=== PATIENT | male | born 1970 | race African-American/Black ===

== ENCOUNTER 2017-04-08 20:06 | Inpatient (IN) | payer BC, OTHER ==
[~2017-04-08] VITALS: Ht 185.4 cm; Wt 114.3 kg
[~2017-04-08 20:06] MED LIST: ALBU0.63 NEB; ALBU90AE INH; ASPI-621 PO; ATOR20TA PO; CARV25TA PO; FURO-93 PO; GABA-826 PO; GLIM1TAB2 PO; HYDR-3343 PO; HYDR25TA6 PO; LISI-420 PO; NITR0.3T5 PO; POTA8CAP PO; SILD50TA PO
[2017-04-08] MEDS ORDERED: ONDANSETRON 2MG/ML, 2ML IVPush ONE ×2 (20:30→21:30)
[2017-04-08] MEDS ORDERED: SODIUM CHLORIDE FLUSH 10ML SYR IVF ONE (20:30)
[2017-04-08] MEDS ORDERED: hydrALAzine 20 MG/ML, 1ML IV ONE (20:30)
[2017-04-08] MEDS ORDERED: hydrALAzine 20 MG/ML, 1ML ONE (20:30)
[2017-04-08 20:49] LABS: BASOPHILS # (AUTO) 0.06 x10^3/uL (0-0.1); BASOPHILS % (AUTO) 1 % (0-1); EOSINOPHILS # (AUTO) 0.39 x10^3/uL (0-0.4); EOSINOPHILS % (AUTO) 6 % (1-7); LYMPHOCYTES # (AUTO) 2.02 x10^3/uL (1-3.4); LYMPHOCYTES % (AUTO) 32 % (22-44); MD NO; MEAN CORPUSCULAR HGB CONC 32.6 g/dL (33.2-36.2); MEAN CORPUSCULAR VOLUME 76.8 fL (81-97); MEAN PLATELET VOLUME 10.6 fL (7.4-10.4); MONOCYTES # (AUTO) 0.42 x10^3/uL (0.2-0.8); MONOCYTES % (AUTO) 7 % (2-9); NEUTROPHILS # (AUTO) 3.47 x10^3/uL (1.8-6.8); NEUTROPHILS % (AUTO) 55 % (42-75); PLATELET COUNT 232 x10^3/uL (130-400); RED BLOOD COUNT 5.57 x10^6/uL (4.38-5.82); RED CELL DISTRIBUTION WIDTH 18.1 % (9.4-14.8)
[2017-04-08] MEDS ORDERED: ONDANSETRON 2MG/ML, 2ML ONE ×2 (20:58→21:25)
[2017-04-08 21:07] LABS: ALANINE AMINOTRANSFERASE 20 U/L (12-78); ALBUMIN 3.1 g/dL (3.4-5.0); ANION GAP 6 mmol/L (5-15); CALCIUM 8.7 mg/dL (8.5-10.1); CHLORIDE 105 mmol/L (98-107); CREATININE 1.78 mg/dL (0.7-1.3)
[2017-04-08 21:10] LABS: ALKALINE PHOSPHATASE 58 U/L (45-117); BILIRUBIN,TOTAL 0.4 mg/dL (0.2-1.0); TOTAL PROTEIN 7.8 g/dL (6.4-8.2)
[2017-04-08] MEDS ORDERED: FAMOTIDINE 20 MG/2 ML ONE (21:29)
[2017-04-08] MEDS ORDERED: FAMOTIDINE 20 MG/2 ML IVPush ONE (21:30)
[2017-04-08] MEDS ORDERED: LABETALOL 5MG/ML, 20ML IVPush ONE (22:00)
[2017-04-08] MEDS ORDERED: SODIUM CHLORIDE FLUSH 10ML SYR IVF PRN (22:00)
[2017-04-08] MEDS ORDERED: MORPHINE SULFATE 4 MG/ML, 1ML IVPush PRN (22:00)
[2017-04-08] MEDS ORDERED: PROMETHAZINE 25 MG/ML, 1ML IM ONE (22:00)
[2017-04-08] MEDS ORDERED: LABETALOL 5MG/ML, 20ML ONE (22:04)
[2017-04-08] MEDS ORDERED: PROMETHAZINE 25 MG/ML, 1ML ONE (22:04)
[2017-04-08] MEDS ORDERED: MORPHINE SULFATE 4 MG/ML, 1ML ONE (22:05)
[2017-04-08] MEDS ORDERED: SODIUM CHLORIDE 0.9% 1,000 ML IV SCH (22:45)
[2017-04-08] MEDS ORDERED: GABAPENTIN 300 MG CAPSULE PO PRN (23:00)
[2017-04-08] MEDS ORDERED: FAMOTIDINE 20 MG/2 ML IVPush SCH (23:00)
[2017-04-08] MEDS ORDERED: BISACODYL 10 MG SUPP PR PRN (23:00)
[2017-04-08] MEDS ORDERED: HEPARIN 5,000 UNITS/ML, 1ML ONE (23:17)
[2017-04-08] MEDS: HEPARIN 5,000 UNITS/ML, 1ML SQ SCH (23:56)
[2017-04-08] MEDS: ATORVASTATIN 20 MG TABLET PO SCH (23:56)
[2017-04-09 00:23] VITALS: BP 184/98
[2017-04-09] MEDS: INSULIN ASPART 100 UNITS/ML, PEN SQ-INSULIN SCH ×6 (00:44→20:06)
[2017-04-09] MEDS: BISMUTH SUBSALICYLATE 175 MG/5 ML MAX/STR PO SCH ×4 (01:00→19:20)
[2017-04-09 04:00] VITALS: BP 154/75
[2017-04-09 05:14] LABS: CHLORIDE 106 mmol/L (98-107)
[2017-04-09 05:15] LABS: ALBUMIN 3.1 g/dL (3.4-5.0); ANION GAP 9 mmol/L (5-15); CALCIUM 8.8 mg/dL (8.5-10.1)
[2017-04-09 05:20] LABS: ALANINE AMINOTRANSFERASE 20 U/L (12-78); ALKALINE PHOSPHATASE 59 U/L (45-117); BILIRUBIN,TOTAL 0.6 mg/dL (0.2-1.0); CREATININE 1.61 mg/dL (0.7-1.3); TOTAL PROTEIN 7.6 g/dL (6.4-8.2); TROPONIN I 0.023 ng/mL (0.000-0.045)
[2017-04-09 05:30] LABS: MEAN CORPUSCULAR HEMOGLOBIN 25.4 pg (27.5-34.5); MEAN CORPUSCULAR HGB CONC 33.2 g/dL (33.2-36.2); MEAN CORPUSCULAR VOLUME 76.3 fL (81-97); MEAN PLATELET VOLUME 11.1 fL (7.4-10.4); PLATELET COUNT 219 x10^3/uL (130-400); RED BLOOD COUNT 5.61 x10^6/uL (4.38-5.82); RED CELL DISTRIBUTION WIDTH 17.7 % (9.4-14.8)
[2017-04-09 06:24] LABS: BASOPHILS # (AUTO) 0.05 x10^3/uL (0-0.1); BASOPHILS % (AUTO) 1 % (0-1); EOSINOPHILS # (AUTO) 0.16 x10^3/uL (0-0.4); EOSINOPHILS % (AUTO) 2 % (1-7); LYMPHOCYTES # (AUTO) 2.42 x10^3/uL (1-3.4); LYMPHOCYTES % (AUTO) 34 % (22-44); MD SCAN; MONOCYTES # (AUTO) 0.46 x10^3/uL (0.2-0.8); MONOCYTES % (AUTO) 7 % (2-9); NEUTROPHILS # (AUTO) 4.01 x10^3/uL (1.8-6.8); NEUTROPHILS % (AUTO) 57 % (42-75)
[2017-04-09 08:24] LABS: AMPHETAMINE SCREEN, URINE Negative (Negative); BARBITURATE SCREEN, URINE Negative (Negative); BENZODIAZEPINE SCREEN, URINE Negative (Negative); CANNABINOID SCREEN, URINE Positive (Negative); COCAINE SCREEN, URINE Negative (Negative); METHADONE SCREEN, URINE Negative (Negative); OPIATE SCREEN, URINE Positive (Negative)
[2017-04-09] MEDS: ONDANSETRON 2MG/ML, 2ML IVPush PRN ×3 (08:26→14:04)
[2017-04-09] MEDS: AMOXICILLIN 500 MG CAPSULE PO SCH ×2 (09:09→20:08)
[2017-04-09] MEDS: LISINOPRIL 20 MG TABLET PO SCH (09:10)
[2017-04-09] MEDS: CLARITHROMYCIN 500 MG TABLET PO SCH ×2 (09:10→20:08)
[2017-04-09] MEDS: OMEPRAZOLE 20 MG CAPSULE.DR PO SCH ×2 (09:10→20:08)
[2017-04-09] MEDS: CARVEDILOL 25 MG TABLET PO SCH ×2 (09:10→20:08)
[2017-04-09] MEDS: ASPIRIN 81 MG TABLET EC PO SCH (09:10)
[2017-04-09] MEDS: HEPARIN 5,000 UNITS/ML, 1ML SQ SCH ×3 (10:44→23:02)
[2017-04-09] MEDS: FERROUS SULFATE 325 MG TABLET PO SCH (10:44)
[2017-04-09] MEDS ORDERED: PROMETHAZINE 25 MG/ML, 1ML ONE (11:36)
[2017-04-09] MEDS: PROMETHAZINE 25 MG/ML, 1ML IM PRN ×3 (11:40→20:12)
[2017-04-09] MEDS: GLIMEPIRIDE 1 MG TABLET PO SCH (16:50)
[2017-04-09] MEDS: MAALOX/HYOSCYAMINE/LIDOCAINE 45 ML BTL PO PRN (17:23)
[2017-04-09] MEDS: ATORVASTATIN 20 MG TABLET PO SCH (20:07)
[2017-04-09] MEDS: morphine SULFATE 10 MG/ML, 1ML IVPush PRN (20:22)
[2017-04-10] MEDS: BISMUTH SUBSALICYLATE 175 MG/5 ML MAX/STR PO SCH ×4 (02:49→19:35)
[2017-04-10 04:23] LABS: ANION GAP 5 mmol/L (5-15); CALCIUM 8.4 mg/dL (8.5-10.1); CHLORIDE 105 mmol/L (98-107); CREATININE 1.82 mg/dL (0.7-1.3)
[2017-04-10 04:49] VITALS: BP 145/87
[2017-04-10] MEDS: GLIMEPIRIDE 1 MG TABLET PO SCH ×3 (06:25→16:08)
[2017-04-10] MEDS: INSULIN ASPART 100 UNITS/ML, PEN SQ-INSULIN SCH ×4 (06:29→21:34)
[2017-04-10] MEDS: LISINOPRIL 20 MG TABLET PO SCH (10:52)
[2017-04-10] MEDS: HEPARIN 5,000 UNITS/ML, 1ML SQ SCH ×2 (10:52→19:35)
[2017-04-10] MEDS: FERROUS SULFATE 325 MG TABLET PO SCH (10:52)
[2017-04-10] MEDS: ASPIRIN 81 MG TABLET EC PO SCH (10:52)
[2017-04-10] MEDS: CLARITHROMYCIN 500 MG TABLET PO SCH ×2 (10:52→21:29)
[2017-04-10] MEDS: AMOXICILLIN 500 MG CAPSULE PO SCH ×2 (10:52→21:29)
[2017-04-10] MEDS: OMEPRAZOLE 20 MG CAPSULE.DR PO SCH ×2 (10:52→21:29)
[2017-04-10] MEDS ORDERED: SODIUM CHLORIDE 0.9% 1,000 ML IV SCH (11:00)
[2017-04-10] MEDS: DILTIAZEM 60 MG TABLET PO SCH ×3 (11:47→21:29)
[2017-04-10] MEDS: SODIUM CHLORIDE 0.9% 1,000 ML IV SCH ×2 (11:48→21:28)
[2017-04-10] MEDS: ATORVASTATIN 20 MG TABLET PO SCH (21:29)
[2017-04-10] MEDS: ONDANSETRON 2MG/ML, 2ML IVPush PRN (22:57)
[2017-04-11] MEDS: BISMUTH SUBSALICYLATE 175 MG/5 ML MAX/STR PO SCH ×4 (00:15→19:00)
[2017-04-11] MEDS: PROMETHAZINE 25 MG/ML, 1ML IM PRN ×4 (00:16→20:00)
[2017-04-11] MEDS: morphine SULFATE 10 MG/ML, 1ML IVPush PRN ×3 (00:34→20:02)
[2017-04-11] MEDS: MAALOX/HYOSCYAMINE/LIDOCAINE 45 ML BTL PO PRN (00:42)
[2017-04-11 03:49] VITALS: BP 170/79
[2017-04-11 04:40] LABS: ANION GAP 9 mmol/L (5-15); CALCIUM 8.4 mg/dL (8.5-10.1); CHLORIDE 107 mmol/L (98-107); CREATININE 1.76 mg/dL (0.7-1.3)
[2017-04-11] MEDS: HEPARIN 5,000 UNITS/ML, 1ML SQ SCH ×3 (04:52→19:00)
[2017-04-11] MEDS: SODIUM CHLORIDE 0.9% 1,000 ML IV SCH (06:39)
[2017-04-11] MEDS: INSULIN ASPART 100 UNITS/ML, PEN SQ-INSULIN SCH ×4 (06:43→20:21)
[2017-04-11] MEDS: OMEPRAZOLE 20 MG CAPSULE.DR PO SCH ×3 (09:09→21:00)
[2017-04-11] MEDS: GLIMEPIRIDE 1 MG TABLET PO SCH ×3 (09:09→16:00)
[2017-04-11] MEDS: FERROUS SULFATE 325 MG TABLET PO SCH (09:09)
[2017-04-11] MEDS: LISINOPRIL 20 MG TABLET PO SCH (09:09)
[2017-04-11] MEDS: ASPIRIN 81 MG TABLET EC PO SCH (09:09)
[2017-04-11] MEDS: CLARITHROMYCIN 500 MG TABLET PO SCH ×3 (09:09→21:00)
[2017-04-11] MEDS: DILTIAZEM 60 MG TABLET PO SCH ×4 (09:09→21:00)
[2017-04-11] MEDS: AMOXICILLIN 500 MG CAPSULE PO SCH ×3 (09:10→21:00)
[2017-04-11] MEDS: ONDANSETRON 2MG/ML, 2ML IVPush PRN ×2 (09:10→20:00)
[2017-04-11] MEDS ORDERED: FAMOTIDINE 20 MG/2 ML ONE (10:57)
[2017-04-11] MEDS ORDERED: hydrALAzine 20 MG/ML, 1ML IV ONE (16:00)
[2017-04-11] MEDS ORDERED: DIAZEPAM 5 MG/ML, 2ML IV ONE (19:00)
[2017-04-11] MEDS: hydrALAzine 20 MG/ML, 1ML IV SCH (19:59)
[2017-04-11] MEDS: ATORVASTATIN 20 MG TABLET PO SCH ×2 (19:59→21:00)
[2017-04-12] MEDS: BISMUTH SUBSALICYLATE 175 MG/5 ML MAX/STR PO SCH ×5 (01:00→20:55)
[2017-04-12] MEDS: hydrALAzine 20 MG/ML, 1ML IV SCH ×4 (01:53→20:53)
[2017-04-12] MEDS: HEPARIN 5,000 UNITS/ML, 1ML SQ SCH ×4 (03:00→20:54)
[2017-04-12 04:00] VITALS: BP 153/77
[2017-04-12] MEDS: PROCHLORPERAZINE 5 MG/ML, 2ML IM PRN ×2 (04:24→09:12)
[2017-04-12 04:35] LABS: BASOPHILS # (AUTO) 0.06 x10^3/uL (0-0.1); BASOPHILS % (AUTO) 1 % (0-1); EOSINOPHILS # (AUTO) 0.02 x10^3/uL (0-0.4); EOSINOPHILS % (AUTO) 0 % (1-7); LYMPHOCYTES # (AUTO) 1.33 x10^3/uL (1-3.4); LYMPHOCYTES % (AUTO) 14 % (22-44); MD NO; MEAN CORPUSCULAR HEMOGLOBIN 25.2 pg (27.5-34.5); MEAN CORPUSCULAR HGB CONC 32.3 g/dL (33.2-36.2); MEAN CORPUSCULAR VOLUME 77.8 fL (81-97); MEAN PLATELET VOLUME 10.5 fL (7.4-10.4); MONOCYTES # (AUTO) 0.49 x10^3/uL (0.2-0.8); MONOCYTES % (AUTO) 5 % (2-9); NEUTROPHILS # (AUTO) 7.45 x10^3/uL (1.8-6.8); NEUTROPHILS % (AUTO) 80 % (42-75); PLATELET COUNT 240 x10^3/uL (130-400); RED BLOOD COUNT 5.79 x10^6/uL (4.38-5.82); RED CELL DISTRIBUTION WIDTH 17.6 % (9.4-14.8)
[2017-04-12 04:43] LABS: ALANINE AMINOTRANSFERASE 18 U/L (12-78); ANION GAP 10 mmol/L (5-15); CALCIUM 8.8 mg/dL (8.5-10.1); CHLORIDE 105 mmol/L (98-107); CREATININE 1.39 mg/dL (0.7-1.3)
[2017-04-12 04:45] LABS: ALKALINE PHOSPHATASE 59 U/L (45-117); BILIRUBIN,TOTAL 0.6 mg/dL (0.2-1.0); TOTAL PROTEIN 7.7 g/dL (6.4-8.2)
[2017-04-12] MEDS: GLIMEPIRIDE 1 MG TABLET PO SCH ×3 (06:30→16:00)
[2017-04-12] MEDS: INSULIN ASPART 100 UNITS/ML, PEN SQ-INSULIN SCH ×4 (07:00→20:53)
[2017-04-12] MEDS: CLARITHROMYCIN 500 MG TABLET PO SCH ×2 (08:42→20:54)
[2017-04-12] MEDS: OMEPRAZOLE 20 MG CAPSULE.DR PO SCH (08:42)
[2017-04-12] MEDS: AMOXICILLIN 500 MG CAPSULE PO SCH ×2 (08:43→20:55)
[2017-04-12] MEDS: LISINOPRIL 20 MG TABLET PO SCH (08:43)
[2017-04-12] MEDS: ASPIRIN 81 MG TABLET EC PO SCH (08:43)
[2017-04-12] MEDS: FERROUS SULFATE 325 MG TABLET PO SCH (08:44)
[2017-04-12] MEDS: DILTIAZEM 60 MG TABLET PO SCH ×3 (08:44→20:55)
[2017-04-12] MEDS ORDERED: SCOPOLAMINE PATCH, 1.5MG PATCH.TD72 TD PRN (09:30)
[2017-04-12] MEDS: METOCLOPRAMIDE 5 MG/ML, 2ML IV SCH ×3 (10:51→20:53)
[2017-04-12] MEDS ORDERED: MAGNESIUM SULFATE PMX 2GM/50ML 50 ML IV ONE (17:00)
[2017-04-12] MEDS: PANTOPRAZOLE 40 MG IV IVPush SCH (20:52)
[2017-04-12] MEDS: ATORVASTATIN 20 MG TABLET PO SCH (20:54)
[2017-04-13] MEDS: BISMUTH SUBSALICYLATE 175 MG/5 ML MAX/STR PO SCH ×3 (01:00→12:40)
[2017-04-13] MEDS: hydrALAzine 20 MG/ML, 1ML IV SCH (02:15)
[2017-04-13] MEDS: HEPARIN 5,000 UNITS/ML, 1ML SQ SCH ×2 (02:15→11:00)
[2017-04-13 04:30] VITALS: BP 142/88
[2017-04-13 04:44] LABS: MEAN CORPUSCULAR HEMOGLOBIN 25.1 pg (27.5-34.5); MEAN CORPUSCULAR HGB CONC 32.6 g/dL (33.2-36.2); MEAN CORPUSCULAR VOLUME 76.9 fL (81-97); MEAN PLATELET VOLUME 10.5 fL (7.4-10.4); PLATELET COUNT 234 x10^3/uL (130-400); RED CELL DISTRIBUTION WIDTH 17.7 % (9.4-14.8)
[2017-04-13 04:47] LABS: ALBUMIN 2.6 g/dL (3.4-5.0); ANION GAP 7 mmol/L (5-15); CALCIUM 8.5 mg/dL (8.5-10.1); CHLORIDE 106 mmol/L (98-107)
[2017-04-13 04:51] LABS: ALANINE AMINOTRANSFERASE 16 U/L (12-78); ALKALINE PHOSPHATASE 50 U/L (45-117); BILIRUBIN,TOTAL 0.7 mg/dL (0.2-1.0); CREATININE 1.85 mg/dL (0.7-1.3); TOTAL PROTEIN 6.7 g/dL (6.4-8.2)
[2017-04-13 05:32] LABS: BASOPHILS # (AUTO) 0.09 x10^3/uL (0-0.1); BASOPHILS % (AUTO) 1 % (0-1); EOSINOPHILS # (AUTO) 0.19 x10^3/uL (0-0.4); EOSINOPHILS % (AUTO) 3 % (1-7); LYMPHOCYTES # (AUTO) 1.83 x10^3/uL (1-3.4); LYMPHOCYTES % (AUTO) 26 % (22-44); MD SCAN; MONOCYTES # (AUTO) 0.86 x10^3/uL (0.2-0.8); MONOCYTES % (AUTO) 12 % (2-9); NEUTROPHILS # (AUTO) 4.14 x10^3/uL (1.8-6.8); NEUTROPHILS % (AUTO) 58 % (42-75)
[2017-04-13] MEDS: INSULIN ASPART 100 UNITS/ML, PEN SQ-INSULIN SCH ×2 (08:06→12:01)
[2017-04-13] MEDS: FERROUS SULFATE 325 MG TABLET PO SCH (08:06)
[2017-04-13] MEDS: GLIMEPIRIDE 1 MG TABLET PO SCH ×2 (08:06→11:57)
[2017-04-13] MEDS: LISINOPRIL 20 MG TABLET PO SCH (08:07)
[2017-04-13] MEDS: ASPIRIN 81 MG TABLET EC PO SCH (08:07)
[2017-04-13] MEDS: DILTIAZEM 60 MG TABLET PO SCH (08:07)
[2017-04-13] MEDS: AMOXICILLIN 500 MG CAPSULE PO SCH (08:07)
[2017-04-13] MEDS: CLARITHROMYCIN 500 MG TABLET PO SCH (08:07)
[2017-04-13] MEDS: PANTOPRAZOLE 40 MG IV IVPush SCH (08:23)
[2017-04-13] MEDS: METOCLOPRAMIDE 5 MG/ML, 2ML IV SCH (08:23)
[2017-04-13] MEDS ORDERED: PIPERACILLIN/TAZO/PMX 3.375GM 50 ML IV SCH (08:30)
[2017-04-13] MEDS ORDERED: CEFD300C37 PO (11:47)
[2017-04-13] MEDS ORDERED: LANS1COM3 PO (11:47)
[2017-04-13] MEDS ORDERED: METR500T PO (11:47)
[2017-04-13] MEDS ORDERED: HYDR-3343 PO (11:47)
[2017-04-13] MEDS ORDERED: CEFDINIR 300 MG CAPSULE PO SCH (12:30)
[2017-04-13] MEDS ORDERED: metroNIDAZOLE 500 MG TABLET PO SCH (12:30)
== END 2017-04-13 14:55 | disposition home or self-care (01) | DRG 305 ==
LOC: ED 21:12 → EDIP 22:28 → CCU 04-09 00:09 → DCLOUNGE 04-13 14:37
PROVIDERS: ADMIT Internal Medicine; ATTEND Internal Medicine
DX: I16.9 Hypertensive crisis, unspecified (principal); N17.9 Acute kidney failure, unspecified; E11.22 Type 2 diabetes mellitus with diabetic chronic kidney disease; I50.9 Heart failure, unspecified; E11.65 Type 2 diabetes mellitus with hyperglycemia; E44.1 Mild protein-calorie malnutrition; D50.9 Iron deficiency anemia, unspecified; F12.10 Cannabis abuse, uncomplicated; I13.0 Hypertensive heart and chronic kidney disease with heart failure and stage 1 through stage 4 chronic kidney disease, or unspecified chronic kidney disease; Z68.33 Body mass index [BMI] 33.0-33.9, adult; E66.9 Obesity, unspecified; E78.5 Hyperlipidemia, unspecified; F17.210 Nicotine dependence, cigarettes, uncomplicated; J44.9 Chronic obstructive pulmonary disease, unspecified; K52.9 Noninfective gastroenteritis and colitis, unspecified; N18.2 Chronic kidney disease, stage 2 (mild); Z82.49 Family history of ischemic heart disease and other diseases of the circulatory system
CPT/HCPCS: 36415; 70450; 71045; 74018; 74176; 76700; 78264; 80048; 80053; 80307; 82728; 82962; 83036; 83540; 83550; 83690; 83735; 84484; 85025; 86677; 87081; 93005; 93975; 96372; 96374; 96375; J1644; J1815; J2405; J2543; J2550; J3360; A9541; C9113; C9898; G0479; J0360; J0780; J2270; J2765; J3475; J7030; J7050; S0028

== ENCOUNTER 2017-05-21 08:32 | Inpatient (IN) | payer BC, OTHER ==
[~2017-05-21] VITALS: Ht 185.4 cm; Wt 120.0 kg
[~2017-05-21 08:32] MED LIST changes: +CEFD300C37 PO; +LANS1COM3 PO; +METR500T PO
[2017-05-21] MEDS ORDERED: SODIUM CHLORIDE 0.9% 1,000 ML IV ONE (08:39)
[2017-05-21] MEDS ORDERED: SODIUM CHLORIDE 0.9% 1,000ML IVBOLUS ONE (09:00)
[2017-05-21] MEDS ORDERED: CAPSAICIN CRM 0.075%, 60GM TP ONE (09:00)
[2017-05-21] MEDS ORDERED: FAMOTIDINE 20 MG/2 ML IVP ONE (09:00)
[2017-05-21] MEDS ORDERED: ONDANSETRON 2MG/ML, 2ML IVPush ONE (09:00)
[2017-05-21] MEDS ORDERED: ONDANSETRON 2MG/ML, 2ML ONE (09:16)
[2017-05-21] MEDS ORDERED: FAMOTIDINE 20 MG/2 ML ONE (09:16)
[2017-05-21 09:19] LABS: ALANINE AMINOTRANSFERASE 17 U/L (12-78); ALBUMIN 3.4 g/dL (3.4-5.0); ANION GAP 9 mmol/L (5-15); CALCIUM 9.2 mg/dL (8.5-10.1); CHLORIDE 102 mmol/L (98-107); CREATININE 2.16 mg/dL (0.7-1.3)
[2017-05-21 09:21] LABS: ALKALINE PHOSPHATASE 66 U/L (45-117); TOTAL PROTEIN 8.6 g/dL (6.4-8.2)
[2017-05-21 09:24] LABS: BASOPHILS % (AUTO) 0 % (0-1); EOSINOPHILS # (AUTO) 0.07 x10^3/uL (0-0.4); EOSINOPHILS % (AUTO) 1 % (1-7); LYMPHOCYTES # (AUTO) 1.23 x10^3/uL (1-3.4); LYMPHOCYTES % (AUTO) 15 % (22-44); MD NO; MEAN CORPUSCULAR HEMOGLOBIN 24.9 pg (27.5-34.5); MEAN CORPUSCULAR HGB CONC 33.2 g/dL (33.2-36.2); MEAN CORPUSCULAR VOLUME 75.1 fL (81-97); MEAN PLATELET VOLUME 10.6 fL (7.4-10.4); MONOCYTES # (AUTO) 0.19 x10^3/uL (0.2-0.8); MONOCYTES % (AUTO) 2 % (2-9); NEUTROPHILS # (AUTO) 6.75 x10^3/uL (1.8-6.8); NEUTROPHILS % (AUTO) 82 % (42-75); PLATELET COUNT 306 x10^3/uL (130-400); RED BLOOD COUNT 5.57 x10^6/uL (4.38-5.82); RED CELL DISTRIBUTION WIDTH 18.4 % (9.4-14.8)
[2017-05-21] MEDS ORDERED: CAPSAICIN CRM 0.025%, 60GM TP ONE (09:30)
[2017-05-21 09:49] LABS: CULTURE INDICATED? NO; MICROSCOPIC AUTO
[2017-05-21] MEDS ORDERED: ZIPRASIDONE 20 MG INJ IM ONE ×3 (10:00→10:50)
[2017-05-21] MEDS ORDERED: LABETALOL 5MG/ML, 20ML IVPush ONE (10:30)
[2017-05-21] MEDS ORDERED: LABETALOL 5MG/ML, 20ML ONE (10:50)
[2017-05-21] MEDS ORDERED: LISINOPRIL 20 MG TABLET ONE (13:04)
[2017-05-21] MEDS ORDERED: hydrALAzine 20 MG/ML, 1ML ONE (13:05)
[2017-05-21] MEDS ORDERED: METOPROLOL TARTRATE 50 MG TABLET ONE (13:05)
[2017-05-21] MEDS ORDERED: hydrALAzine 20 MG/ML, 1ML IV ONE (13:30)
[2017-05-21 14:25] VITALS: BP 192/119
[2017-05-21] MEDS ORDERED: GABAPENTIN 300 MG CAPSULE PO PRN (14:30)
[2017-05-21] MEDS ORDERED: hydrALAzine 20 MG/ML, 1ML IVPush PRN (14:30)
[2017-05-21] MEDS ORDERED: MORPHINE SULFATE 4 MG/ML, 1ML IVPush PRN (14:30)
[2017-05-21] MEDS ORDERED: ONDANSETRON 2MG/ML, 2ML IVPush PRN (14:30)
[2017-05-21] MEDS ORDERED: ACETAMINOPHEN 325 MG TABLET PO PRN (14:30)
[2017-05-21] MEDS ORDERED: TEMAZEPAM 15 MG CAPSULE PO PRN (14:30)
[2017-05-21 14:43] LABS: FREE T4 (FREE THYROXINE) 1.39 ng/dL (0.76-1.46); THYROID STIMULATING HORMONE 1.73 mIU/L (0.358-3.740)
[2017-05-21 15:19] VITALS: BP 131/77
[2017-05-21] MEDS: GLIMEPIRIDE 1 MG TABLET PO SCH (17:57)
[2017-05-21] MEDS ORDERED: METOPROLOL TARTRATE 100 MG TABLET PO SCH (18:00)
[2017-05-21] MEDS ORDERED: PROCHLORPERAZINE 10MG TABLET PO PRN (18:00)
[2017-05-21 18:01] VITALS: BP 179/116
[2017-05-21] MEDS: INSULIN LISPRO 100 UNITS/ML, PEN SQ-INSULIN SCH ×2 (18:16→21:14)
[2017-05-21 20:18] VITALS: BP 168/89
[2017-05-21] MEDS ORDERED: ATORVASTATIN 20 MG TABLET PO SCH (21:00)
[2017-05-21] MEDS: CARVEDILOL 25 MG TABLET PO SCH (21:14)
[2017-05-21] MEDS: PANTOPROZOLE 40MG TABLET PO SCH (21:14)
[2017-05-22 02:08] VITALS: BP 105/55
[2017-05-22 05:10] LABS: MEAN CORPUSCULAR HEMOGLOBIN 24.8 pg (27.5-34.5); MEAN CORPUSCULAR HGB CONC 32.4 g/dL (33.2-36.2); MEAN CORPUSCULAR VOLUME 76.6 fL (81-97); MEAN PLATELET VOLUME 10.8 fL (7.4-10.4); PLATELET COUNT 290 x10^3/uL (130-400); RED BLOOD COUNT 5.13 x10^6/uL (4.38-5.82); RED CELL DISTRIBUTION WIDTH 18.7 % (9.4-14.8)
[2017-05-22 05:18] LABS: ALANINE AMINOTRANSFERASE 12 U/L (12-78); ALBUMIN 2.9 g/dL (3.4-5.0); ANION GAP 11 mmol/L (5-15); CALCIUM 8.5 mg/dL (8.5-10.1); CHLORIDE 102 mmol/L (98-107); CREATININE 2.72 mg/dL (0.7-1.3)
[2017-05-22 05:24] LABS: ALKALINE PHOSPHATASE 53 U/L (45-117); BILIRUBIN,TOTAL 0.9 mg/dL (0.2-1.0); CHOL/HDL RATIO 3.2; CHOLESTEROL, TOTAL 146 mg/dL (140-239); HDL CHOL % 32 % (26-37); HDL CHOLESTEROL (DIRECT) 46 mg/dL (40-60); LDL CHOLESTEROL,CALCULATED 82 mg/dL (54-169); LDL/HDL RATIO 1.8 (0.5-3.0); TRIGLYCERIDES 90 mg/dL (50-200); VLDL CHOLESTEROL 18 mg/dL (0-25)
[2017-05-22 05:36] LABS: HEMOGLOBIN A1C 7.6 % (4.2-6.3)
[2017-05-22 06:40] VITALS: BP 127/81
[2017-05-22 06:44] LABS: BASOPHILS # (AUTO) 0.08 x10^3/uL (0-0.1); BASOPHILS % (AUTO) 1 % (0-1); EOSINOPHILS # (AUTO) 0.01 x10^3/uL (0-0.4); EOSINOPHILS % (AUTO) 0 % (1-7); LYMPHOCYTES # (AUTO) 1.52 x10^3/uL (1-3.4); LYMPHOCYTES % (AUTO) 20 % (22-44); MD SCAN; MONOCYTES # (AUTO) 0.63 x10^3/uL (0.2-0.8); MONOCYTES % (AUTO) 8 % (2-9); NEUTROPHILS # (AUTO) 5.56 x10^3/uL (1.8-6.8); NEUTROPHILS % (AUTO) 71 % (42-75)
[2017-05-22] MEDS: INSULIN LISPRO 100 UNITS/ML, PEN SQ-INSULIN SCH ×3 (07:00→11:23)
[2017-05-22] MEDS: GLIMEPIRIDE 1 MG TABLET PO SCH ×2 (08:05→11:23)
[2017-05-22] MEDS: CARVEDILOL 25 MG TABLET PO SCH (08:05)
[2017-05-22] MEDS: PANTOPROZOLE 40MG TABLET PO SCH (08:09)
[2017-05-22] MEDS ORDERED: LISINOPRIL 20 MG TABLET PO SCH (09:00)
[2017-05-22] MEDS ORDERED: ENOXAPARIN 40 MG/0.4 ML SQ SCH (09:00)
[2017-05-22] MEDS ORDERED: ASPIRIN 81 MG TABLET EC PO SCH (09:00)
[2017-05-22 12:20] VITALS: BP 104/48
[2017-05-22] MEDS ORDERED: GLIM4TAB PO (15:20)
[2017-05-22] MEDS ORDERED: CLON0.1T12 PO (15:20)
== END 2017-05-22 16:11 | disposition expired | DRG 683 ==
LOC: ED 08:47 → EDIP 11:03 → 4WST 14:18
PROVIDERS: ADMIT Hospitalist; ATTEND Internal Medicine
DX: N17.9 Acute kidney failure, unspecified (principal); I50.32 Chronic diastolic (congestive) heart failure; I11.0 Hypertensive heart disease with heart failure; B96.81 Helicobacter pylori [H. pylori] as the cause of diseases classified elsewhere; E11.9 Type 2 diabetes mellitus without complications; E66.9 Obesity, unspecified; E78.5 Hyperlipidemia, unspecified; E86.0 Dehydration; F12.90 Cannabis use, unspecified, uncomplicated; I16.0 Hypertensive urgency; J44.9 Chronic obstructive pulmonary disease, unspecified; Z80.3 Family history of malignant neoplasm of breast; Z87.891 Personal history of nicotine dependence; Z91.14 Patient's other noncompliance with medication regimen; Z68.34 Body mass index [BMI] 34.0-34.9, adult
CPT/HCPCS: 36415; 71045; 74176; 80053; 80061; 81001; 82962; 83036; 83690; 83735; 84100; 84439; 84443; 85025; 93005; 93306; 96361; 96372; 96374; 96375; J2405; J3486; J0360; J1815; J7030; S0028